=== PATIENT | male | born 1945 | race Caucasian/White ===

== ENCOUNTER → 2018-06-09 12:45 | Outpatient (CLI) | payer MEDICARE, OTHER, SELFPAY ==
--- NOTE | 2018-06-09 | DI.CT.S_ITS ---
PROCEDURE: CT ABDOMEN PELVIS W CON INDICATIONS: HEMATURIA TECHNIQUE: After the administration of intravenous contrast, 5 mm thick sections acquired from the diaphragm to the symphysis. 5 mm coronal and sagittal reformats were acquired. For radiation dose reduction, the following was used: automated exposure control, adjustment of mA and/or kV according to patient size. COMPARISON: None. FINDINGS: Image quality: Excellent. ABDOMEN: Lung bases: No acute consolidation. Mild subsegmental atelectasis or scarring in the lung bases. There is a 3 mm nodule in the lingula on image 7 which is indeterminate in the absence of prior studies Heart size is normal. Solid organs: There is hepatic steatosis. Hypodense lesion in the posterior segment measuring approximately 1.9 cm with ill-defined peripheral nodular enhancement could be a hemangioma although technically indeterminate and further evaluation with ultrasound or dedicated liver protocol CT could be performed for further assessment. Additional smaller hypodense lesions seen in the right lobe, for example image 24 series 2 are technically indeterminate and too small to characterize definitively. Gallbladder negative. Biliary system is non dilated. Pancreas enhances normally. Spleen is normal in size and enhancement. Bilateral subcentimeter adrenal nodules, which are too small to characterize and nonspecific. These measure 74 Hounsfield units on the right and 59 Hounsfield units on the left. No hydronephrosis. Presumed lateral right renal cortical scarring with associated calcification. No nephrolithiasis is seen. Peritoneum and bowel: Bowel loops demonstrate normal wall thickness and caliber. No free fluid or air. Nodes and vessels: No retroperitoneal or mesenteric adenopathy by size criteria. Aorta and inferior vena cava are normal in size. Miscellaneous: No ventral hernias. PELVIS: Genitourinary: The bladder is partially decompressed otherwise unremarkable. Prostate appears enlarged Miscellaneous: No inguinal hernias or adenopathy. Bones: No suspicious bony lesions. No vertebral body compression fractures. IMPRESSION: No visualized etiology for hematuria. No hydronephrosis or urolithiasis identified. Hypodense liver lesion in the right lobe, possibly a hemangioma although recommend further evaluation with dedicated liver ultrasound or liver protocol contrast-enhanced CT or MRI Enlarged prostate. Please correlate clinically and with biochemical data such as PSA. Bilateral subcentimeter adrenal nodules which are technically indeterminate, although attenuation greater than expected for adenoma. Recommend further evaluation with dedicated adrenal protocol MRI or continued surveillance with CT to document long-term stability to exclude early metastatic disease. . Right renal cortical scarring with associated dystrophic calcifications. 3 mm lingular pulmonary nodule, indeterminate in the absence of prior studies. As clinically warranted, a followup noncontrast chest CT could be performed in one year to exclude early metastatic/malignant possibilities. Dictated by: Ravinder Ponce M.D. on 06/09/2018 at 13:30 Approved by: Ravinder Ponce M.D. on 06/09/2018 at 13:42
== END ==
PROVIDERS: PCP Internal Medicine; Visit Provider Internal Medicine
DX: R31.9 Hematuria, unspecified (principal); N40.0 Benign prostatic hyperplasia without lower urinary tract symptoms; K76.9 Liver disease, unspecified; R91.1 Solitary pulmonary nodule; N28.89 Other specified disorders of kidney and ureter
CPT/HCPCS: 74177

== ENCOUNTER → 2018-07-03 07:18 | Outpatient (CLI) | payer MEDICARE, OTHER, SELFPAY ==
--- NOTE | 2018-07-03 | DI.MRI.S_ITS ---
PROCEDURE: MR ABDOMEN WO CON INDICATIONS: *ADRENAL PROTOCOL* TECHNIQUE: Coronal HASTE, axial 2-D FLASH in- and [id number] with subtractions from the hepatic dome to the iliac crests. COMPARISON: [facility], CT, CT ABDOMEN PELVIS W CON, 06/09/2018, 13:07. FINDINGS: Image quality: Excellent. Adrenal glands: There is a 1.3 cm left adrenal nodule demonstrating signal drop off on out of phase images, consistent with presence of macroscopic fat, therefore, compatible with a benign adrenal adenoma. The smaller left renal nodule also demonstrates signal drop off on [id number] images, consistent with a adrenal adenoma. Other solid organs: There is a 1.1 x 2.2 cm mass in the posterior segment of the right hepatic lobe with T2 hyperintensity and T1 hypointensity. Several small hepatic cysts are noted. Liver is normal in overall size. Gallbladder is normal. Biliary system is non dilated. Pancreas is normal in morphology. Spleen is normal in size. Both kidneys are normal in size, without hydronephrosis. Nodes and vessels: No retroperitoneal or mesenteric adenopathy by size criteria. Aorta and inferior vena cava are normal in size. Bowel and peritoneum: Unenhanced bowel loops are normal in caliber. No free fluid. Lung bases: No basal pleural effusions. Heart size is normal. Bones and soft tissues: No ventral hernias. Bone marrow is of normal overall signal. IMPRESSION: 1. The small adrenal nodules bilaterally demonstrate MRI signal characteristics compatible with benign adrenal adenomas. 2. A 1.1 x 2.2 cm mass in the posterior segment of right hepatic lobe. This mass has shown nodular enhancement on CT and appears hyperechoic on ultrasound, compatible with a hemangioma. 3. Multiple small hepatic cysts are noted. Dictated by: Juan Carlos Menon M.D. on 07/03/2018 at 10:27 Approved by: Juan Carlos Menon M.D. on 07/03/2018 at 10:37
--- NOTE | 2018-07-03 | DI.US.S_ITS ---
PROCEDURE: US ABDOMEN COMPLETE INDICATIONS: LIVER DAMAGE TECHNIQUE: Real-time scanning was performed of the abdominal and retroperitoneal organs, with image documentation. COMPARISON: [facility], CT, CT ABDOMEN PELVIS W CON, 06/09/2018, 13:07. [facility], MR, MR ABDOMEN WO CON, 07/03/2018, 7:59. FINDINGS: Liver: Liver is normal in size. There is a hyperechoic mass in the posterior segment of the right hepatic lobe measuring 2.5 x 2.2 x 1.5 cm, which correlates with the mass seen on CT. A small slightly complex cyst is noted in the right hepatic lobe measuring 1.2 x 0.9 x 2.9 cm. Gallbladder: No gallstones. No gallbladder wall thickening, pericholecystic fluid or sonographic Cox's sign. Biliary ducts: Intrahepatic bile ducts are non-dilated. Extrahepatic bile duct caliber measures 5 mm. Normal is 6-7 mm or less in diameter, or 10 mm or less post-cholecystectomy. Pancreas: Visualized portions of the pancreas are sonographically normal. Spleen: Spleen is normal in size and homogeneous in echotexture. Kidneys: Kidneys are normal in size and echotexture. Right kidney measures 10.5 cm long; left kidney measures 10.1 cm long. There is a 1.3 cm echogenic structure in the superior pole the right kidney, consistent with a non-obstructive stone or calcification. No hydronephrosis. No solid masses. Aorta: Visualized aorta is normal in caliber at less than 3 cm. Iliacs: Proximal common iliac arteries are normal in caliber at less than 2.5 cm. IVC: Intrahepatic inferior vena cava is patent. Miscellaneous: No free abdominal fluid. IMPRESSION: 1. A 2.5 x 2.5 x 1.5 cm hyperechoic mass in the posterior segment of the right hepatic lobe, most likely a hepatic hemangioma. If the patient has no prior history of liver disease, no additional followup is recommended. 2. A small slightly complex cyst in the right hepatic lobe. 3. A 1.3 cm non--obstructive stone or calcification in the superior pole of the right kidney. Dictated by: Juan Carlos Menon M.D. on 07/03/2018 at 10:18 Approved by: Juan Carlos Menon M.D. on 07/03/2018 at 10:26
== END ==
PROVIDERS: PCP Internal Medicine; Visit Provider Internal Medicine
DX: K76.89 Other specified diseases of liver (principal); R16.0 Hepatomegaly, not elsewhere classified; N20.0 Calculus of kidney; K76.9 Liver disease, unspecified; E27.9 Disorder of adrenal gland, unspecified
CPT/HCPCS: 74181; 76700

== ENCOUNTER → 2019-01-12 08:39 | Outpatient (CLI) | payer MEDICARE, OTHER, SELFPAY ==
--- NOTE | 2019-01-12 | DI.CT.S_ITS ---
PROCEDURE: CT CHEST WO CON INDICATIONS: PULMONARY NODULE TECHNIQUE: Noncontrast 5 mm thick sections acquired from the pulmonary apices to the posterior costophrenic angles. 7 mm thick coronal and sagittal MIP reformats were then acquired. For radiation dose reduction, the following was used: automated exposure control, adjustment of mA and/or kV according to patient size. COMPARISON: [facility], US, US ABDOMEN COMPLETE, 07/03/2018, 8:38. [facility], MR, MR ABDOMEN WO CON, 07/03/2018, 7:59. [facility], CT, CT ABDOMEN PELVIS W CON, 06/09/2018, 13:07. FINDINGS: Image quality: Excellent. Lungs and pleura: There is a 4 mm nodule in lingula, stable in size since the last exam (series 3 image 51). No acute air space opacities. No pleural effusions or pneumothorax. Central and peripheral airways are patent and normal in caliber. Mediastinum: Heart size is normal. No pericardial effusion. No mediastinal adenopathy by size criteria. Thoracic aorta and central pulmonary arteries are normal in size. Esophagus is normal in caliber. No hiatal hernia. Bones and chest wall: No suspicious bony lesions. No vertebral body compression fractures. No axillary or supraclavicular adenopathy by size criteria. Thyroid gland is normal. Abdomen: There is a vague right hepatic hypodensity, which was seen on the last CT as a hepatic hemangioma with nodular enhancement. A small cyst is noted in the right hepatic lobe. There is a 1.0 x 2.0 cm right adrenal nodules CT density compatible with adenoma. IMPRESSION: 1. Stable 4 mm lingular nodule since 06/09/2018. Please see enclosed followup recommendation. Fleischner Society criteria for SOLID lung nodule followup. Nodule size (mm)Low-risk patientHigh-risk patient?4No follow-up neededFollow-up at 12 mo; if no change, no further follow-up>[id number]-ok CT at 12 mo; if no change, no further follow-up needed.Initial follow-up CT at 6-12 mo, then 18-24 mo if no change. >6-8Initial follow-up CT at 6-12 mo, then 18-24 mo if no change. Initial follow-up CT at 3-6 mo, then 9-12 mo and 24 mo if no change. >8Follow-up CT at 3, 9, 24 mo. Or PET and/or biopsy.Same as for low-risk pts. Dictated by: Juan Carlos Menon M.D. on 01/12/2019 at 10:11 Approved by: Juan Carlos Menon M.D. on 01/12/2019 at 10:22
== END ==
PROVIDERS: PCP Internal Medicine; Visit Provider Internal Medicine
DX: R91.1 Solitary pulmonary nodule (principal)
CPT/HCPCS: 71250

== ENCOUNTER → 2020-06-13 08:28 | Outpatient (CLI) | payer MEDICARE, OTHER, SELFPAY ==
[2020-06-13 10:31] LABS: Prostate Specific Antigen 2.61 ng/mL (0.10-4.00)
== END ==
PROVIDERS: PCP Internal Medicine; Referring Provider Student in an Organized Health Care Education/Training Program; Visit Provider Student in an Organized Health Care Education/Training Program
DX: C61 Malignant neoplasm of prostate (principal)
CPT/HCPCS: 36415; 84153

== ENCOUNTER → 2020-08-03 19:11 | Outpatient (ROUT) | payer MEDICARE, OTHER, SELFPAY ==
[2020-08-03 19:52] LABS: Hematocrit 42.8 % (41-53); Hemoglobin 14.6 g/dL (13.5-17.5); Mean Corpuscular Hemoglobin 30.6 PG (26-34); Mean Corpuscular Volume 90.2 fL (80-100); Platelet Count 221 X10^3/uL (150-400); Red Blood Cell Count 4.75 X10^6/uL (4.5-5.9); Red Cell Distribution Width 13.3 % (11.6-14.8); White Blood Cell Count 8.2 X10^3/uL (4.5-11.0)
[2020-08-03 20:02] LABS: BUN Creatinine Ratio 23.2 (6-22); Blood Urea Nitrogen 22 mg/dL (9-20); Calcium 9.1 mg/dL (8.4-10.2); Carbon Dioxide 27 mmol/L (22-32); Chloride 107 mmol/L (98-107); Estimated Glomerular Filt Rate > 60.0 mL/min (>60); Glucose 142 mg/dL (80-110); HEMOLYSIS < 15 (0-50); Potassium 4.2 mmol/L (3.4-5.1); Sodium 139 mmol/L (137-145)
[2020-08-03 20:29] LABS: Neutrophils Absolute Manual 5986 /uL (3000-5900); RBC Morphology Normal Morphology; Total Cells Counted 100
== END ==
PROVIDERS: PCP Internal Medicine; Visit Provider Internal Medicine
DX: Z01.818 Encounter for other preprocedural examination (principal)
CPT/HCPCS: 80048; 85025

== ENCOUNTER → 2020-09-05 09:04 | Outpatient (CLI) | payer MEDICARE, OTHER, SELFPAY | PROVIDERS: PCP Internal Medicine; Referring Provider Student in an Organized Health Care Education/Training Program; Visit Provider Student in an Organized Health Care Education/Training Program | DX: C61 Malignant neoplasm of prostate (principal) | CPT/HCPCS: 36415; 84153 ==

== ENCOUNTER → 2020-11-21 10:15 | Outpatient (CLI) | payer MEDICARE, OTHER, SELFPAY ==
[2020-11-21 11:28] LABS: Prostate Specific Antigen 2.91 ng/mL (0.10-4.00)
== END ==
PROVIDERS: PCP Internal Medicine; Referring Provider Student in an Organized Health Care Education/Training Program; Visit Provider Student in an Organized Health Care Education/Training Program
DX: C61 Malignant neoplasm of prostate (principal)
CPT/HCPCS: 36415; 84153

== ENCOUNTER → 2021-02-01 15:10 | Outpatient (ROUT) | payer MEDICARE, BC, SELFPAY ==
[2021-02-01 15:47] LABS: Aspartate Aminotransferase 22 IU/L (17-59); Blood Urea Nitrogen 21 mg/dL (9-20); Calcium 9.6 mg/dL (8.4-10.2); Carbon Dioxide 26 mmol/L (22-32); Chloride 106 mmol/L (98-107); Cholesterol 185 mg/dL (140-199); Estimated Glomerular Filt Rate > 60.0 mL/min (>60); Glucose 105 mg/dL (80-110); HDL Cholesterol 65 mg/dL (40-60); HEMOLYSIS < 15 (0-50); LDL Cholesterol Calculated 105 mg/dL (<100); Potassium 4.6 mmol/L (3.4-5.1); Sodium 137 mmol/L (137-145); Triglycerides 75 mg/dL (35-150)
== END ==
PROVIDERS: PCP Internal Medicine; Visit Provider Internal Medicine
DX: I10 Essential (primary) hypertension (principal); E78.2 Mixed hyperlipidemia
CPT/HCPCS: 80048; 80061; 84450

== ENCOUNTER → 2021-02-13 10:26 | Outpatient (CLI) | payer MEDICARE, BC, SELFPAY | PROVIDERS: PCP Internal Medicine; Referring Provider Student in an Organized Health Care Education/Training Program; Visit Provider Student in an Organized Health Care Education/Training Program | DX: C61 Malignant neoplasm of prostate (principal) | CPT/HCPCS: 36415; 84153 ==

== ENCOUNTER → 2021-05-15 09:23 | Outpatient (CLI) | payer MEDICARE, BC, SELFPAY ==
[2021-05-15 10:57] LABS: Prostate Specific Antigen 2.88 ng/mL (0.10-4.00)
== END ==
PROVIDERS: PCP Internal Medicine; Referring Provider Student in an Organized Health Care Education/Training Program; Visit Provider Student in an Organized Health Care Education/Training Program
DX: C61 Malignant neoplasm of prostate (principal)
CPT/HCPCS: 36415; 84153

== ENCOUNTER → 2021-11-29 11:06 | Outpatient (CLI) | payer MEDICARE, BC, SELFPAY ==
[2021-11-29 13:25] LABS: Prostate Specific Antigen 3.73 ng/mL (0.10-4.00)
== END ==
PROVIDERS: PCP Internal Medicine; Referring Provider Student in an Organized Health Care Education/Training Program; Visit Provider Student in an Organized Health Care Education/Training Program
DX: C61 Malignant neoplasm of prostate (principal)
CPT/HCPCS: 36415; 84153

== ENCOUNTER → 2022-03-07 10:08 | Outpatient (CLI) | payer MEDICARE, BC, SELFPAY ==
[2022-03-07 11:52] LABS: Add Manual Diff / Slide Review NO; Basophils Absolute Auto 0 /uL (0-100); Basophils Percent Auto 0.8 % (0-2); Eosinophils Absolute Auto 200 /uL (0-450); Eosinophils Percent Auto 3.3 % (2-4); Hematocrit 45.1 % (41-53); Hemoglobin 15.5 g/dL (13.5-17.5); Lymphocytes Absolute Auto 1300 /uL (1100-4500); Lymphocytes Percent Auto 23.9 % (25-40); Mean Corpuscular HGB Conc 34.3 % (30-36); Mean Corpuscular Hemoglobin 30.5 PG (26-34); Mean Corpuscular Volume 88.9 fL (80-100); Monocytes Absolute Auto 600 /uL (0-900); Monocytes Percent Auto 10.8 % (3-14); Neutrophils Absolute Auto 3300 /uL (1500-7000); Neutrophils Percent Auto 61.2 % (50-75); Platelet Count 225 X10^3/uL (150-400); Red Blood Cell Count 5.08 X10^6/uL (4.5-5.9); Red Cell Distribution Width 13.2 % (11.6-14.8); White Blood Cell Count 5.4 X10^3/uL (4.5-11.0)
[2022-03-07 12:17] LABS: Alanine Aminotransferase 14 IU/L (<50); Albumin 4.5 g/dL (3.5-5.0); Albumin Globulin Ratio 1.8 (1.0-2.8); Alkaline Phosphatase 87 U/L (38-126); Aspartate Aminotransferase 26 IU/L (17-59); BUN Creatinine Ratio 21.8 (6-22); Bilirubin Total 0.7 mg/dL (0.2-1.3); Blood Urea Nitrogen 19 mg/dL (9-20); Calcium 9.4 mg/dL (8.4-10.2); Carbon Dioxide 25 mmol/L (22-32); Chloride 104 mmol/L (98-107); Cholesterol 182 mg/dL (140-199); Estimated Glomerular Filt Rate > 60 mL/min (>60); Globulin 2.5 g/dL (1.7-4.1); Glucose 75 mg/dL (80-110); HDL Cholesterol 71 mg/dL (40-60); HEMOLYSIS < 15 (0-50); LDL Cholesterol Calculated 93 mg/dL (<100); Potassium 4.9 mmol/L (3.4-5.1); Sodium 140 mmol/L (137-145); Triglycerides 89 mg/dL (35-150)
[2022-03-07 12:45] LABS: Prostate Specific Antigen Scrn 4.09 ng/mL (0.1-4.0)
[2022-03-07 12:46] LABS: TSH w/ Reflex to FT4 2.84 uIU/mL (0.47-4.68)
== END ==
PROVIDERS: PCP Internal Medicine; Referring Provider Student in an Organized Health Care Education/Training Program; Visit Provider Internal Medicine
DX: E78.2 Mixed hyperlipidemia (principal); Z12.5 Encounter for screening for malignant neoplasm of prostate; I10 Essential (primary) hypertension; C61 Malignant neoplasm of prostate
CPT/HCPCS: 36415; 80053; 80061; 84443; 85025; G0103

== ENCOUNTER → 2022-05-07 09:15 | Outpatient (CLI) | payer MEDICARE, BC, SELFPAY ==
[2022-05-07 11:23] LABS: Prostate Specific Antigen 3.15 ng/mL (0.10-4.00)
== END ==
PROVIDERS: PCP Internal Medicine; Referring Provider Student in an Organized Health Care Education/Training Program; Visit Provider Student in an Organized Health Care Education/Training Program
DX: C61 Malignant neoplasm of prostate (principal)
CPT/HCPCS: 36415; 84153

== ENCOUNTER 2022-07-31 06:16 | Day surgery (SDC) | payer MEDICARE, BC, SELFPAY ==
[2022-07-31 07:22] VITALS: BP 141/73; PULSE 74; RESP 16; TEMP 36.6; O2SAT 98; BMI 20.7
[2022-07-31] MEDS: LACTATED RINGERS 1,000 ML 200 ML IV (07:25)
[2022-07-31] MEDS: LACTATED RINGERS 1,000 ML 150 ML IV (07:35)
[2022-07-31 07:38] LABS: COVID19 -Nasal RAPID Negative (Negative)
--- NOTE | 2022-07-31 07:45 | PM.HP.1 ---
History of Present Illness History of Present Illness Date Patient Seen: 07/31/22 Time Patient Seen: 07:45 Chief complaint: SDC Narrative: The patient presents for colorectal screening. Previously normal colonoscopy 5 years ago. Brother has history of colon cancer. On further history denies any recent gastrointestinal symptoms. No nausea, vomiting, abdominal pain, loss of appetite, unexplained weight loss, change in bowel habits, diarrhea, constipation, melena, hematochezia, or bright red blood per rectum. Patient History Medical History Acne BPH w urinary obs/LUTS Cataracts, bilateral Chicken pox Encounter for general adult medical examination without abnormal findings Erectile dysfunction Essential hypertension Family history of colon cancer Iliotibial band syndrome, left leg Irritable bowel syndrome Malignant neoplasm of prostate Melanoma Mixed hyperlipidemia Mumps Skin cancer Surgical History Anesthesia History of cataract removal with insertion of prosthetic lens History of ear surgery History of hand surgery Family & Social History Family History Brother Cancer Social History: household members spouse Tobacco & Substance use: Smoking Status Never smoker alcohol intake never Substance Use Type does not use Meds Home Medications and Allergies Home Medications Medication Instructions Recorded Confirmed Type amlodipine 2.5 mg tablet 2.5 mg PO DAILY #90 tabs 03/07/22 07/31/22 Rx aspirin 81 mg tablet,delayed 81 mg PO DAILY 03/07/22 07/31/22 History release atorvastatin 20 mg tablet 20 mg PO DAILY #90 tabs 03/07/22 07/31/22 Rx cholecalciferol (vitamin D3) 25 25 mcg PO DAILY 03/07/22 07/31/22 History mcg (1,000 unit) capsule coenzyme [id number] E 100 mg-100 2 cap PO DAILY 03/07/22 07/31/22 History unit capsule fluocinolone 0.01 % topical cream 1 applic topical BID 03/07/22 07/31/22 History tadalafil 20 mg tablet 20 mg PO DAILY 03/07/22 07/31/22 History tamsulosin 0.4 mg capsule 0.4 mg PO DAILY 05/26/22 07/31/22 History Allergies Allergy/AdvReac Type Severity Reaction Status Date / Time shellfish derived Allergy Severe Swelling Verified 07/31/22 07:15 of Lip/Tongue/Throat procaine [From Novocain] AdvReac Severe Vomiting Verified 07/31/22 07:15 Exam Vital Signs (past 8 hours): - 07/31/22 07:22 Temperature 97.9 F Pulse Rate 74 Respiratory Rate 16 Blood Pressure 141/73 H Pulse Oximetry 98 Oxygen Delivery Method Room Air Oxygen Delivery Method Room Air Narrative Exam Narrative: General adult male alert oriented no acute distress Abdomen soft nontender nondistended Objective Labs Labs: Laboratory Results - last 24 hr 07/31/22 07:06 SARS-CoV-2 (PCR) Negative Assessment & Plan Assessment & Plan narrative: The patient requires colorectal screening and colonoscopy is recommended. Technical details were discussed. Risks, benefits, alternatives explained. Risks including but not limited to myocardial infarction, aspiration, bleeding, pain, missed lesion, incomplete examination, need for further radiographic studies, colonic perforation, and need for major abdominal surgery were discussed. All questions were answered to their satisfaction, and they are in agreement with this plan. Time Spent With Patient Critical Care time: I spent a total of [] minutes of critical care time on this patient's care today; this time is exclusive of procedural time.
--- NOTE | 2022-07-31 07:49 | PM.OP.COLON ---
Operative Date/Time/Diagnoses Date of procedure: 07/31/22 Time of procedure: 07:49 Pre-op diagnosis: Family history of colon cancer Post-op diagnosis: same Procedure & Clinicians Study performed: Colonoscopy Same procedure as scheduled: Yes Indications: Family history of colon cancer Surgeon: Leroy Reveles Procedure Notes Procedure in detail: Medications: Conscious sedation using 4mg IV midazolam and 150mcg IV of fentanyl The history and physical was performed/updated and the patient is ASA class is 2. The procedure was discussed in detail with the patient. Potential risks complications including infection, bleeding, missed diagnosis, perforation, need for surgery, and were explained. Their questions were answered and informed consent was obtained. Patient was brought to the procedure room and placed standard monitoring equipment. The patient's vital signs were monitored continuously throughout the entire procedure. Prior to starting time-out was performed. The patient was placed in the left lateral recumbent position. Procedural sedation was administered. Examination began with a thorough inspection of the perianal area there was no evidence of fissures, fistulae, external hemorrhoids or cutaneous malignancy. The colonoscopy scope was then placed into the anal canal and was advanced to the cecum, which was identified by the ileocecal valve, the appendiceal orifice and the confluence of the taenia. The scope was then slowly withdrawn examining colon thoroughly in all directions, irrigating it of any residual stool. FINDINGS 1. No masses or polyps 2. Tortuous colon The patient tolerated the procedure well. They will be discharged once criteria are met. The prep was of good/excellent quality. The withdrawl time was 5 minutes. The sedation time was 24 minutes. Impression: Normal colonoscopy Post-procedure Recommendations: Colonoscopy in 5 years Disposition: same day surgery
[2022-07-31] MEDS: MIDAZOLAM 5 MG/5 ML VIAL IV (08:08)
[2022-07-31] MEDS: fentaNYL 100 MCG/2 ML INJ IV (08:09)
--- NOTE | 2022-07-31 08:17 | SUR.OPER ---
TOLERATED WELL... EXTERNAL ABDOMINAL PRESSURE REQUIRED
[2022-07-31 08:25] VITALS: BP 114/65; PULSE 70; RESP 16; TEMP 36.4; O2SAT 98
[2022-07-31 08:30] VITALS: BP 119/71; PULSE 67; RESP 16; O2SAT 98
[2022-07-31 08:35] VITALS: BP 121/68; PULSE 60; RESP 16; TEMP 36.8; O2SAT 98
[2022-07-31 08:40] VITALS: BP 127/63; PULSE 62; RESP 18; TEMP 37; O2SAT 98
== END 2022-07-31 08:49 | disposition home or self-care (01) ==
PROVIDERS: PCP Internal Medicine; Referring Provider Surgery; Visit Provider Surgery
PROC: 0DJD8ZZ Inspection of Lower Intestinal Tract, Via Natural or Artificial Opening Endoscopic (ICD-10-PCS; CPT 45378; principal; 2022-07-31 07:45)
DX: Z12.11 Encounter for screening for malignant neoplasm of colon (principal); Z80.0 Family history of malignant neoplasm of digestive organs; Z20.822 Contact with and (suspected) exposure to COVID-19
CPT/HCPCS: G0105; 87635; 99152; 99153; C9803; J2250; J3010

== ENCOUNTER → 2022-08-13 16:26 | Outpatient (CLI) | payer MEDICARE, BC, SELFPAY ==
--- NOTE | 2022-08-13 16:27 | DI.RAD.S_ITS ---
PROCEDURE: XR HIP W PEL IF DONE LT 2V INDICATIONS: left hip pain TECHNIQUE: AP pelvis with lateral view(s) of the left hip(s). COMPARISON: None. FINDINGS: Bones: No fractures or dislocations. Pelvic ring appears intact. No suspicious bony lesions. Moderate symmetric axial joint space narrowing with periarticular osteophyte formation. There is prominence of the femoral head/neck junction bilaterally. Degenerative disc and facet disease involves the inferior lumbar spine. Soft tissues: The visualized bowel gas pattern is normal. No suspicious soft tissue calcifications. IMPRESSION: 1. Moderate symmetric hip joint degeneration. 2. Osseous prominence of the femoral head/neck junction bilaterally which can be associated CAM type femoral acetabular impingement. Dictated by: Herminio Mann [facility] Interpreted: Asha Madsen MD on 08/13/2022 at 16:44 Transcribed by: MEDINA on 08/13/2022 at 16:45 Approved by: Asha Madsen M.D. on 08/13/2022 at 16:52
== END ==
PROVIDERS: PCP Internal Medicine; Referring Provider Internal Medicine; Visit Provider Internal Medicine
DX: M25.552 Pain in left hip (principal); M76.32 Iliotibial band syndrome, left leg
CPT/HCPCS: 73502

== ENCOUNTER → 2022-11-06 13:15 | Outpatient (CLI) | payer MEDICARE, BC, SELFPAY ==
[2022-11-06 15:04] LABS: Prostate Specific Antigen 4.05 ng/mL (0.10-4.00)
== END ==
PROVIDERS: PCP Internal Medicine; Referring Provider Student in an Organized Health Care Education/Training Program; Visit Provider Student in an Organized Health Care Education/Training Program
DX: C61 Malignant neoplasm of prostate (principal)
CPT/HCPCS: 36415; 84153

== ENCOUNTER → 2023-03-13 10:39 | Outpatient (CLI) | payer MEDICARE, BC, SELFPAY ==
[2023-03-13 12:36] LABS: Aspartate Aminotransferase 24 IU/L (17-59); BUN Creatinine Ratio 19.4 (6-22); Blood Urea Nitrogen 18 mg/dL (9-20); Calcium 9.1 mg/dL (8.4-10.2); Carbon Dioxide 26 mmol/L (22-32); Chloride 104 mmol/L (98-107); Cholesterol 167 mg/dL (140-199); Estimated Glomerular Filt Rate > 60 mL/min (>60); Glucose 91 mg/dL (80-110); HDL Cholesterol 68 mg/dL (40-60); HEMOLYSIS < 15 (0-50); LDL Cholesterol Calculated 85 mg/dL (<100); Potassium 4.4 mmol/L (3.4-5.1); Sodium 137 mmol/L (137-145); Triglycerides 69 mg/dL (35-150)
[2023-03-13 12:56] LABS: Prostate Specific Antigen 3.36 ng/mL (0.10-4.00)
== END ==
PROVIDERS: PCP Internal Medicine; Referring Provider Internal Medicine; Visit Provider Internal Medicine
DX: E78.2 Mixed hyperlipidemia (principal); C61 Malignant neoplasm of prostate; I10 Essential (primary) hypertension; N13.8 Other obstructive and reflux uropathy; N40.1 Benign prostatic hyperplasia with lower urinary tract symptoms
CPT/HCPCS: 36415; 80048; 80061; 84153; 84450

== ENCOUNTER → 2023-03-28 09:35 | Outpatient (CLI) | payer MEDICARE, BC, SELFPAY ==
--- NOTE | 2023-03-28 09:36 | DI.ECHO.S_ITS ---
+ + [place] : : [place] : : [facility] : : [facility] : : [place] : : [place] : : [id number] : : Phone: [phone] Echocardiogram Report + + :Name: TIMOTHY BEY Study Date: 03/28/2023 Height: 69 in : :[facility] ReadingLocation: Weight: 145 lb : : Gender: Male BSA: 1.8 m2 : :: 1945 Age: 77 yrs BP: 115/73 mmHg: :Reason For Study: MURMUR HR: 66 : :Ordering Physician: SARA, : :ECHO Performed By: ROVERTO DICKERSON : :Referring: ECHO RUIZ : + + Interpretation Summary 1) Normal left ventricular thickness, size, wall motion, and systolic function (EF 60-65%). 2) Normal right ventricular size and function. 3) Mildly calcifc aortic valve with no stenosis or regurgitation. 4) No prior Echo available for comparison. Procedure: A two-dimensional transthoracic echocardiogram with color flow and Doppler was performed. The study quality was technically adequate. There is no prior echocardiogram noted for this patient. The patient was in normal sinus rhythm during the exam. Left Ventricle: The left ventricle is normal in size and wall thickness. Left ventricular systolic function is normal. The ejection fraction is estimated to be 60-65%. Left ventricular wall motion is normal. Diastolic parameters suggest a relaxation abnormality of the left ventricle, consistent with probable normal filling pressures. Right Ventricle: The right ventricle is normal in size and function. Atria: The left atrium is mildly dilated. The right atrium is mildly dilated. There is no Doppler evidence for an interatrial shunt. Mitral Valve: The mitral valve is normal in structure and function. There is trace mitral regurgitation. Aortic Valve: The aortic valve is trileaflet. The aortic valve opens well. There is discrete nodular thickening of the non- coronary cusp. There is mild aortic valve sclerosis. There is no aortic valve stenosis. There is trace aortic regurgitation. Tricuspid Valve: The tricuspid valve is normal in structure and function. There is mild tricuspid regurgitation. The right ventricular systolic pressure is estimated to be at least 25 mmHg based on an estimated right atrial pressure of 3 mm Hg. Pulmonic Valve: The pulmonic valve is normal in structure and function. There is no pulmonic valvular regurgitation. Great Vessels: The aortic root is normal size. The ascending aorta is normal in size. The IVC is of normal diameter and collapses greater than 50% with a sniff. This suggests a low right atrial pressure of 3 mm Hg. Pericardium/ Pleura There is no pericardial effusion. There is no pleural effusion. MMode/2D Measurements & Calculations LVIDd: 4.2 cm LVOT diam: 2.0 cm LVIDs: 2.6 cm Ao root diam: 3.3 cm FS: 38.1 % asc Aorta Diam: 3.2 cm IVSd: 0.90 cm LVPWd: 0.70 cm LV pruitt. diameter/BSA (cm/m^2): 2.3 LV sys. diameter/BSA (cm/m^2): 1.4 LA A2 area: 20.0 cm2 RA long axis: 4.7 cm LA A4 area: 18.9 cm2 LA length (vol): 5.7 cm LA vol: 56.0 ml LA vol index: 31.1 ml/m2 LVLs ap4: 6.5 cm LVLd ap2: 7.3 cm LVLs ap2: 5.8 cm TAPSE_phl: 2.6 cm Doppler Measurements & Calculations Ao V2 max: 195.0 cm/sec LVOT Max Perfecto: 135.0 cm/sec Ao V2 mean: 141.0 cm/sec LV V1 max P.3 mmHg Ao max P.2 mmHg LV V1 VTI: 31.5 cm Ao mean P.0 mmHg JAMES(I,D): 2.2 cm2 Ao V2 VTI: 44.5 cm JAMES(V,D): 2.2 cm2 sev ratio: 0.71 JAMES indexed to BSA (cm^2/m^2): 1.2 MV E max perfecto: 90.4 cm/sec TR max perfecto: 233.0 cm/sec MV A max perfecto: 88.7 cm/sec TR max P.7 mmHg MV E/A: 1.0 PA V2 max: 108.0 cm/sec Med Peak E' Perfecto: 6.7 cm/sec PA V2 mean: 69.7 cm/sec E/E' med: 13.6 PA mean P.0 mmHg Lat Peak E' Perfecto: 10.5 cm/sec PA pr(Accel): 18.7 mmHg E/E' lat: 8.6 E/e' average: 11.1 MV dec time: 0.21 sec SV(LVOT): 99.0 ml AV VR_phl: 0.69 JAMES(VTI)/BSA_phl: 1.2 MV P1/2t-pr_phl: 61.0 msec Reading Physician:01:[id number] PM
== END ==
PROVIDERS: PCP Internal Medicine; Referring Provider Internal Medicine; Visit Provider Internal Medicine
DX: R01.1 Cardiac murmur, unspecified (principal); I08.2 Rheumatic disorders of both aortic and tricuspid valves
CPT/HCPCS: 93306

== ENCOUNTER → 2023-06-03 09:08 | Outpatient (CLI) | payer MEDICARE, BC, SELFPAY ==
[2023-06-03 11:48] LABS: Prostate Specific Antigen 3.27 ng/mL (0.10-4.00)
== END ==
PROVIDERS: PCP Internal Medicine; Referring Provider Student in an Organized Health Care Education/Training Program; Visit Provider Student in an Organized Health Care Education/Training Program
DX: C61 Malignant neoplasm of prostate (principal)
CPT/HCPCS: 36415; 84153

== ENCOUNTER 2023-07-30 09:23 | Emergency (ER) | payer MEDICARE, BC, SELFPAY ==
[2023-07-30] VITALS (13 sets, daily range): BP systolic 115–159; BP diastolic 57–82; PULSE 58–79; RESP 14–30; TEMP 36.6; O2SAT 95–97; BMI 20.7
--- NOTE | 2023-07-30 09:29 | DI.RAD.S_ITS ---
PROCEDURE: XR CHEST 1V INDICATIONS: chest pain TECHNIQUE: One view of the chest was acquired. COMPARISON: CT, CT CHEST WO CON, 01/12/2019, 8:39. FINDINGS: Surgical changes and devices: None. Lungs and pleura: Lungs are clear. No pleural effusions or pneumothorax. Mediastinum: Mediastinal contours appear normal. Heart size is normal. Bones and chest wall: No suspicious bony lesions. Overlying soft tissues appear unremarkable. IMPRESSION: Portable chest within normal limits for age. Dictated by: Juan Carlos Menon M.D. on 07/30/2023 at 9:49 Approved by: Juan Carlos Menon M.D. on 07/30/2023 at 9:49
[2023-07-30 09:47] LABS: Add Manual Diff / Slide Review NO; Basophils Absolute Auto 100 /uL (0-100); Basophils Percent Auto 0.9 % (0-2); Eosinophils Absolute Auto 200 /uL (0-450); Eosinophils Percent Auto 3.2 % (2-4); Hematocrit 46.3 % (41-53); Hemoglobin 15.7 g/dL (13.5-17.5); Lymphocytes Absolute Auto 1700 /uL (1100-4500); Lymphocytes Percent Auto 28.8 % (25-40); Mean Corpuscular HGB Conc 33.9 % (30-36); Mean Corpuscular Hemoglobin 30.8 PG (26-34); Mean Corpuscular Volume 90.9 fL (80-100); Monocytes Absolute Auto 400 /uL (0-900); Monocytes Percent Auto 6.1 % (3-14); Neutrophils Absolute Auto 3500 /uL (1500-7000); Platelet Count 211 X10^3/uL (150-400); Red Cell Distribution Width 13.3 % (11.6-14.8); White Blood Cell Count 5.8 X10^3/uL (4.5-11.0)
[2023-07-30 09:54] LABS: Prothrombin Time 11.6 SECONDS (10.1-12.7)
[2023-07-30 09:57] LABS: PTT Partial Thromboplastin Tim 33 SECONDS (26-36)
[2023-07-30 10:00] LABS: Alanine Aminotransferase 17 IU/L (<50); Albumin 4.5 g/dL (3.5-5.0); Albumin Globulin Ratio 1.6 (1.0-2.8); Alkaline Phosphatase 79 U/L (38-126); Aspartate Aminotransferase 24 IU/L (17-59); BUN Creatinine Ratio 19.6 (6-22); Bilirubin Total 0.8 mg/dL (0.2-1.3); Blood Urea Nitrogen 18 mg/dL (9-20); Calcium 9.1 mg/dL (8.4-10.2); Carbon Dioxide 29 mmol/L (22-32); Chloride 103 mmol/L (98-107); Creatine Kinase 67 U/L (55-170); Estimated Glomerular Filt Rate > 60 mL/min (>60); Globulin 2.9 g/dL (1.7-4.1); Glucose 119 mg/dL (80-110); HEMOLYSIS < 15 (0-50); Lipase 67 U/L (23-300); Magnesium 2.1 mg/dL (1.6-2.3); Sodium 140 mmol/L (137-145); Total Protein 7.4 g/dL (6.3-8.2)
[2023-07-30 10:10] LABS: Troponin I < 0.012 ng/mL (0.01-0.034)
[2023-07-30 10:56] LABS: Bacteria Urine None Seen; Culture Indicated Urine Cult Not Indicated; RBC Urine 0-1/HPF (0-5/HPF); Squamous Epithelial Cell Urine None Seen (0-5/HPF); WBC Urine 0-1/HPF (0-5/HPF)
[2023-07-30 12:37] LABS: NT-proBNP (BNP-Adult 18+) 37 pg/mL (<450); Troponin I < 0.012 ng/mL (0.01-0.034)
--- NOTE | 2023-07-30 12:54 | ED_ITS ---
HPI - Arrhythmia/Palpitations General Chief Complaint: Arrhythmia/Palpitations Stated Complaint: heart Time Seen by Provider: 07/30/23 11:59 Source: patient Mode of arrival: Ambulatory Limitations: no limitations History of Present Illness HPI narrative: This is an 78-year-old male with history of hypertension, dyslipidemia, BPH, erectile dysfunction on an aspirin daily. Patient presents with complaint of palpitations since the of the month, patient states it has been going on for several days, nothing seems to be making it worse or better. He does feel little lightheaded in the morning gets better as the day goes by. States he does not really feeling palpitations in the 2nd half of the day. He denies any syncope no chest pain, no shortness of breath, no nausea or vomiting, no diaphoresis. No swelling of extremities. No issues such as diarrhea or constipation, no urinary symptoms. He would similar episode in February, had EKGs and echo which did not show any acute changes per patient. States no issues since then. He does take medication for blood pressure, hypertension and dyslipidemia, he takes an aspirin 81 mg daily. No prior cardiac stents or interventions. He states had a finger surgery in the past and some excision for skin lesions. Allergic to Novocain. No tobacco, alcohol or illicit. Dr. Mcwilliams is his primary care. He is never seen Cardiology before. Related Data Home Medications Medication Instructions Recorded Confirmed aspirin 81 mg tablet,delayed 81 mg PO DAILY 03/07/22 04/11/23 release cholecalciferol (vitamin D3) 25 25 mcg PO DAILY 03/07/22 04/11/23 mcg (1,000 unit) capsule coenzyme [id number] 100 mg-100 2 cap PO DAILY 03/07/22 04/11/23 unit capsule tadalafil 20 mg tablet 20 mg PO DAILY 03/07/22 04/11/23 tamsulosin 0.4 mg capsule 0.4 mg PO DAILY 05/26/22 04/11/23 Previous Rx's Medication Instructions Recorded amlodipine 2.5 mg tablet 2.5 mg PO DAILY #90 tabs 03/11/23 atorvastatin 20 mg tablet 20 mg PO DAILY #90 tabs 03/11/23 Allergies Allergy/AdvReac Type Severity Reaction Status Date / Time shellfish derived Allergy Severe Swelling Verified 07/30/23 09:26 of Lip/Tongue/Throat procaine [From Novocain] AdvReac Severe Vomiting Verified 07/30/23 09:26 Review of Systems Review of Systems ROS Unobtainable: All systems reviewed & are unremarkable except as noted in HPI and below Patient History Medical History Acne BPH w urinary obs/LUTS Cataracts, bilateral Chicken pox Erectile dysfunction Essential hypertension Family history of colon cancer Femoral acetabular impingement Irritable bowel syndrome Malignant neoplasm of prostate Melanoma Mixed hyperlipidemia Mumps Skin cancer Surgical History Anesthesia History of cataract removal with insertion of prosthetic lens History of ear surgery History of hand surgery Family History Brother Cancer Social History household members: spouse Smoking Status: Never smoker alcohol intake: never Smoking Status: Never smoker alcohol intake frequency: holidays/special occasions only Substance Use Type: does not use Exam Narrative Exam Narrative: GENERAL: Alert and oriented x three, thin elderly male in no acute distress. HEENT: Head normocephalic, atraumatic, EOMI, pupils reactive, face symmetric, moist mucous membranes NECK: Supple, full range of motion CARDIOVASCULAR: Regular rate and rhythm without murmurs, rubs or gallops. No JVD. No swelling bilateral lower extremities. RESPIRATORY: Breath sounds equal bilaterally, no wheezes rales or rhonchi. No t achypnea or accessory muscle use. ABDOMEN: Soft, nontender. Normoactive bowel sounds all 4 quadrants. No guarding or rebound, rigidity, no mass : No CVA tenderness EXTREMITIES: Normal range of motion, no clubbing or edema. Neurovascularly intact NEUROLOGICAL: Cranial nerves II through XII grossly intact. Moving all extremities SKIN: Warm, dry, no petechiae, no rashes or lesions. Initial Vital Signs Initial Vital Signs: Vital Signs Temperature 97.8 F 07/30/23 09:26 Pulse Rate 79 07/30/23 09:26 Respiratory Rate 14 07/30/23 09:26 Blood Pressure 140/63 07/30/23 09:26 Pulse Oximetry 96 07/30/23 09:26 Oxygen Delivery Method Room Air 07/30/23 09:26 Course Orders Ordered: ED Orders 07/30/23 10:18 Urine Microscopic Stat 07/30/23 12:00 BNP [NT-proBNP (BNP-Adult 18+)] Stat Troponin I Stat Vital Signs Vital signs: Vital Signs - 8 hr 07/30/23 11:00 07/30/23 11:00 07/30/23 11:21 Pulse Rate 62 Respiratory Rate 21 Blood Pressure 135/63 148/67 H Pulse Oximetry 95 07/30/23 11:21 07/30/23 11:30 07/30/23 11:30 Pulse Rate 61 60 Respiratory Rate 20 14 Blood Pressure 134/58 L Pulse Oximetry 97 96 07/30/23 12:00 07/30/23 12:01 07/30/23 12:01 Pulse Rate 64 61 Respiratory Rate 18 16 Blood Pressure 159/82 H Pulse Oximetry 95 97 07/30/23 12:30 07/30/23 12:30 07/30/23 13:00 Pulse Rate 58 L Respiratory Rate Blood Pressure 137/61 150/71 H Pulse Oximetry 95 07/30/23 13:00 07/30/23 13:17 07/30/23 13:17 Pulse Rate 59 L 64 Respiratory Rate 20 18 Blood Pressure 151/71 H Pulse Oximetry 96 95 07/30/23 13:30 07/30/23 13:30 Pulse Rate 65 Respiratory Rate Blood Pressure 144/66 H Pulse Oximetry 96 MDM - Arrhythmia/Palpitations Lab Data 07/30/23 09:38 07/30/23 09:38 Labs: Lab Results 07/30/23 07/30/23 07/30/23 Range/Units 09:38 09:38 09:38 WBC 5.8 (4.5-11.0) X10^3/uL RBC 5.10 (4.5-5.9) X10^6/uL Hgb 15.7 (13.5-17.5) g/dL Hct 46.3 (41-53) % MCV 90.9 (80-100) fL MCH 30.8 (26-34) PG MCHC 33.9 (30-36) % RDW 13.3 (11.6-14.8) % Plt Count 211 (150-400) X10^3/uL Neut % (Auto) 61.0 (50-75) % Lymph % (Auto) 28.8 (25-40) % [place] % (Auto) 6.1 (3-14) % Eos % (Auto) 3.2 (2-4) % Baso % (Auto) 0.9 (0-2) % Neut # (Auto) 3500 (9512-0550) /uL Lymph # (Auto) 1700 (0303-9361) /uL [place] # (Auto) 400 (0-900) /uL Eos # (Auto) 200 (0-450) /uL Baso # (Auto) 100 (0-100) /uL PT 11.6 (10.1-12.7) SECONDS INR 1.0 (0.9-1.3) APTT 33 (26-36) SECONDS Sodium 140 (137-145) mmol/L Potassium 4.0 (3.4-5.1) mmol/L Chloride 103 (98-107) mmol/L Carbon Dioxide 29 (22-32) mmol/L BUN 18 (9-20) mg/dL Creatinine 0.92 (0.66-1.25) mg/dL Estimated GFR > 60 (>60) mL/min BUN/Creatinine Ratio 19.6 (6-22) Glucose 119 H (80-110) mg/dL Calcium 9.1 (8.4-10.2) mg/dL Magnesium 2.1 (1.6-2.3) mg/dL Total Bilirubin 0.8 (0.2-1.3) mg/dL AST 24 (17-59) IU/L ALT 17 (<50) IU/L Alkaline Phosphatase 79 (38-126) U/L Total Creatine Kinase 67 (55-170) U/L Troponin I < 0.012 (0.01-0.034) ng/mL NT-Pro-B Natriuret Pep (<450) pg/mL Total Protein 7.4 (6.3-8.2) g/dL Albumin 4.5 (3.5-5.0) g/dL Globulin 2.9 (1.7-4.1) g/dL Albumin/Globulin Ratio 1.6 (1.0-2.8) Lipase 67 (23-300) U/L Urine RBC (0-5/HPF) Urine WBC (0-5/HPF) Ur Squamous Epith Cells (0-5/HPF) Urine Bacteria (None) Ur Culture Indicated? 07/30/23 07/30/23 Range/Units 10:18 12:00 WBC (4.5-11.0) X10^3/uL RBC (4.5-5.9) X10^6/uL Hgb (13.5-17.5) g/dL Hct (41-53) % MCV (80-100) fL MCH (26-34) PG MCHC (30-36) % RDW (11.6-14.8) % Plt Count (150-400) X10^3/uL Neut % (Auto) (50-75) % Lymph % (Auto) (25-40) % [place] % (Auto) (3-14) % Eos % (Auto) (2-4) % Baso % (Auto) (0-2) % Neut # (Auto) (9759-0018) /uL Lymph # (Auto) (2321-8058) /uL [place] # (Auto) (0-900) /uL Eos # (Auto) (0-450) /uL Baso # (Auto) (0-100) /uL PT (10.1-12.7) SECONDS INR (0.9-1.3) APTT (26-36) SECONDS Sodium (137-145) mmol/L Potassium (3.4-5.1) mmol/L Chloride (98-107) mmol/L Carbon Dioxide (22-32) mmol/L BUN (9-20) mg/dL Creatinine (0.66-1.25) mg/dL Estimated GFR (>60) mL/min BUN/Creatinine Ratio (6-22) Glucose (80-110) mg/dL Calcium (8.4-10.2) mg/dL Magnesium (1.6-2.3) mg/dL Total Bilirubin (0.2-1.3) mg/dL AST (17-59) IU/L ALT (<50) IU/L Alkaline Phosphatase (38-126) U/L Total Creatine Kinase (55-170) U/L Troponin I < 0.012 (0.01-0.034) ng/mL NT-Pro-B Natriuret Pep 37 (<450) pg/mL Total Protein (6.3-8.2) g/dL Albumin (3.5-5.0) g/dL Globulin (1.7-4.1) g/dL Albumin/Globulin Ratio (1.0-2.8) Lipase (23-300) U/L Urine RBC 0-1/hpf (0-5/HPF) Urine WBC 0-1/hpf (0-5/HPF) Ur Squamous Epith Cells None seen (0-5/HPF) Urine Bacteria None seen (None) Ur Culture Indicated? Cult not indicated Urine Dip Bedside Urine Glucose Negative Bedside Urine Bilirubin - Negative Bedside Urine Ketone - Negative Urine Specific [place] 1.015 Bedside Urine Occult Blood - Negative Bedside Urine pH 6.0 Bedside Urine Protein - Negative Bedside Urine Urobilinogen - Negative Bedside Urine Nitrite - Negative Bedside Urine Leukocytes + 70 Esterase Imaging Data Chest x-ray: Radiologist's Impresson: Fuentes Chin??78??M??1945 ? Allergy/Adv: shellfish derived, procaine Close Chest X-Ray (Signed) LynseyJuan Carlos - 07/30/23 Echocardiogram Ultrasound (Signed) Izzy Chapa - 03/28/23 Hip X-Ray (Signed) Asha Madsen - 08/13/22 Telemetry Strips 07/31/[address] (Signed) LynseyAdelfo mcmahonmaryjane - 01/12/19 Abdomen Ultrasound (Signed) LynseyDavid mcmahonreyes - 07/03/18 Abdomen MRI (Signed) Lynsey,Stacey - 07/03/18 Abdomen/Pelvis CT (Signed) Ravinder Ponce - 06/09/18 [place] [address] XRay Report Signed Patient: Fuentes Chin MR#: [id number] : 1945 Acct:[id number] Age/Sex: 78 / M Date of Service: 07/30/23 Loc: ED Accession Number: [id number] ?? Procedure: XR chest 1V Ordering Provider: Nga Davies D.O. PROCEDURE:? XR CHEST 1V ? INDICATIONS:? chest pain ? TECHNIQUE:? One view of the chest was acquired.? ? COMPARISON:? CT, CT CHEST WO CON, 01/12/2019, 8:39. ? FINDINGS:? ? Surgical changes and devices:? None.? ? Lungs and pleura:? Lungs are clear.? No pleural effusions or pneumothorax.? ? Mediastinum:? Mediastinal contours appear normal.? Heart size is normal.? ? Bones and chest wall:? No suspicious bony lesions.? Overlying soft tissues appear unremarkable.? ? ? IMPRESSION:? Portable chest within normal limits for age. ? ? Dictated by: Juan Carlos Menon M.D. on 07/30/2023 at 9:49 ? ? Approved by: Juan Carlos Menon M.D. on 07/30/2023 at 9:49?? ECG Data Attestation: I personally reviewed and interpreted this ECG as follows: Prior ECG tracings: not available for review Interpretation: Sinus rhythm rate of 73 LA 166, QRS of 98 QTC 431. LAFB, no priors for comparison. MDM Narrative Medical decision making narrative: Pleasant 78-year-old male who presents with complaint of palpitations, he states they have been going on for about 5 days he contacted his primary care office who told him to come here. He has had some mild lightheadedness no syncope. No other red flag symptoms. He notes he had similar episode last February had EKG and echo at that time which showed extra beats but no other changes. He is on amlodipine, aspirin, atorvastatin, tamsulosin until the fill daily no medication changes for quite some time. Patient's lab workup shows normal CBC, CMP has a glucose of 118 otherwise normal electrolytes, renal function and LFTs. Negative troponin x2, negative coags with a BNP of 37 and negative chest x-ray. Discussed with patient can continue his home meds did ask him check his blood pressures seems to be worse in the morning and he feels more lightheaded. Patient and I discussed having him follow up with primary care for Holter/ZIO patch although he does have occasional PVCs and maybe feeling these. Discussed return precautions all questions answered. Patient feels comfortable with this plan. Discharge Plan Departure Patient Disposition: Home Clinical Impression: Heart palpitations Instructions: DI for Palpitations Activity Restrictions/Additional Instructions: Please follow-up with Dr. Mcwilliams for recheck. Call for an appointment. You did have some occasional PVCs but no other obvious heart arrhythmias here in the department, discussed with Dr. Mcwilliams about whether or not to have a Holter monitor or ZIO patch. You may continue your other home medications as prescribed. Please take your blood pressure in the mornings to see where you run. Please return for new or worsening symptoms, persistent fast or irregular heartbeat, worsening lightheadedness or passing out, new chest pain, shortness of breath, new swelling in her extremities or other new or concerning changes. Prescriptions: No Action tadalafil 20 mg tablet 20 mg PO DAILY Patient Comments: TAKE ONE TABLET BY MOUTH ONE TIME DAILY aspirin 81 mg tablet,delayed release (DR/EC) 81 mg PO DAILY cholecalciferol (vitamin D3) 25 mcg (1,000 unit) capsule 25 mcg PO DAILY coenzyme [id number] E 100-100 mg-unit capsule 2 cap PO DAILY tamsulosin 0.4 mg capsule 0.4 mg PO DAILY amlodipine 2.5 mg tablet 2.5 mg PO DAILY Qty: 90 3RF atorvastatin 20 mg tablet 20 mg PO DAILY Qty: 90 3RF Referrals: Chuck Mcwilliams MD [Primary Care Provider] - Stand Alone Forms: Patient Portal/API
== END 2023-07-30 13:45 | disposition home or self-care (01) ==
PROVIDERS: Emergency Provider Emergency Medicine; PCP Internal Medicine
DX: R00.2 Palpitations (principal); R07.9 Chest pain, unspecified
CPT/HCPCS: 36415; 71045; 80053; 81003; 81015; 82550; 83690; 83735; 83880; 84484; 85025; 85610; 85730; 93005; 93010; 99284

== ENCOUNTER → 2023-08-07 13:31 | Outpatient (CLI) | payer MEDICARE, BC, SELFPAY | PROVIDERS: PCP Internal Medicine; Referring Provider Internal Medicine; Visit Provider Internal Medicine | DX: R00.2 Palpitations (principal) | CPT/HCPCS: 93246 ==

== ENCOUNTER → 2023-12-05 09:24 | Outpatient (CLI) | payer MEDICARE, BC, SELFPAY ==
[2023-12-05 11:36] LABS: Prostate Specific Antigen 3.84 ng/mL (0.10-4.00)
== END ==
PROVIDERS: PCP Internal Medicine; Referring Provider Student in an Organized Health Care Education/Training Program; Visit Provider Student in an Organized Health Care Education/Training Program
DX: C61 Malignant neoplasm of prostate (principal)
CPT/HCPCS: 36415; 84153

== ENCOUNTER → 2024-04-16 15:01 | Outpatient (CLI) | payer MEDICARE, BC, SELFPAY ==
[2024-04-16 17:24] LABS: Aspartate Aminotransferase 26 IU/L (17-59); BUN Creatinine Ratio 21.7 (6-22); Blood Urea Nitrogen 20 mg/dL (9-20); Calcium 8.8 mg/dL (8.4-10.2); Carbon Dioxide 24 mmol/L (22-32); Chloride 108 mmol/L (98-107); Cholesterol 156 mg/dL (140-199); Estimated Glomerular Filt Rate > 60 mL/min (>60); Glucose 104 mg/dL (80-110); HDL Cholesterol 52 mg/dL (40-60); HEMOLYSIS < 15 (0-50); LDL Cholesterol Calculated 76 mg/dL (<100); Potassium 4.3 mmol/L (3.4-5.1); Sodium 138 mmol/L (137-145); Triglycerides 138 mg/dL (35-150)
== END ==
PROVIDERS: PCP Internal Medicine; Referring Provider Internal Medicine; Visit Provider Internal Medicine
DX: E78.2 Mixed hyperlipidemia (principal); I10 Essential (primary) hypertension
CPT/HCPCS: 80048; 80061; 84450

== ENCOUNTER → 2024-05-29 12:54 | Outpatient (CLI) | payer MEDICARE, BC, SELFPAY ==
[2024-05-29 15:51] LABS: Prostate Specific Antigen 3.75 ng/mL (0.10-4.00)
== END ==
LOC: LAB 12:55
PROVIDERS: PCP Internal Medicine; Referring Provider Student in an Organized Health Care Education/Training Program; Visit Provider Student in an Organized Health Care Education/Training Program
DX: C61 Malignant neoplasm of prostate (principal)
CPT/HCPCS: 36415; 84153

== ENCOUNTER → 2024-11-26 10:53 | Outpatient (CLI) | payer MEDICARE, BC, SELFPAY ==
[2024-11-26 13:23] LABS: Prostate Specific Antigen 3.44 ng/mL (0.10-4.00)
== END ==
PROVIDERS: PCP Internal Medicine; Referring Provider Student in an Organized Health Care Education/Training Program; Visit Provider Student in an Organized Health Care Education/Training Program
DX: C61 Malignant neoplasm of prostate (principal)
CPT/HCPCS: 36415; 84153

== ENCOUNTER → 2024-12-15 16:12 | Outpatient (CLI) | payer MEDICARE, BC, SELFPAY ==
[2024-12-15 20:26] LABS: Influenza A - CEPHEID Flu A POSITIVE (NEGATIVE); Influenza B - CEPHEID Flu B NEGATIVE (NEGATIVE); Respiratory Syncytial Virus Negative (Negative)
[2024-12-15 20:27] LABS: COVID-19 CEPHEID 4-PLEX PCR Negative (Negative)
== END ==
PROVIDERS: PCP Internal Medicine; Visit Provider Physician Assistant
DX: R05.1 Acute cough (principal)
CPT/HCPCS: 0241U

== ENCOUNTER → 2024-12-15 16:34 | Outpatient (CLI) | payer MEDICARE, BC, SELFPAY ==
--- NOTE | 2024-12-15 16:35 | DI.RAD.S_ITS ---
PROCEDURE: XR CHEST 2V INDICATIONS: cough x 1 week TECHNIQUE: 2 views of the chest were acquired. COMPARISON: [facility], CR, XR CHEST 1V, 07/30/2023, 9:25. FINDINGS: Surgical changes and devices: None. Lungs and pleura: Lungs are clear. No pleural effusions or pneumothorax. Mediastinum: Mediastinal contours are normal. Heart size is normal. Bones and chest wall: No suspicious bony abnormalities. Soft tissues appear unremarkable. IMPRESSION: No acute cardiopulmonary abnormality is seen. Dictated by: Mayito Stinson M.D. on 12/16/2024 at 16:25 Approved by: Mayito Stinson M.D. on 12/16/2024 at 16:26
== END ==
PROVIDERS: PCP Internal Medicine; Referring Provider Physician Assistant; Visit Provider Physician Assistant
DX: J06.9 Acute upper respiratory infection, unspecified (principal); R05.1 Acute cough
CPT/HCPCS: 0241U; 71046

== ENCOUNTER → 2025-04-21 08:51 | Outpatient (CLI) | payer MEDICARE, BC, SELFPAY ==
[2025-04-21 10:37] LABS: Aspartate Aminotransferase 24 IU/L (17-59); BUN Creatinine Ratio 22.4 (6-22); Blood Urea Nitrogen 22 mg/dL (9-20); Calcium 9.4 mg/dL (8.4-10.2); Carbon Dioxide 26 mmol/L (22-32); Chloride 106 mmol/L (98-107); Cholesterol 166 mg/dL (140-199); Estimated Glomerular Filt Rate > 60 mL/min (>60); Glucose 86 mg/dL (70-99); HDL Cholesterol 70 mg/dL (40-60); HEMOLYSIS < 15 (0-50); LDL Cholesterol Calculated 81 mg/dL (<100); Potassium 4.6 mmol/L (3.4-5.1); Sodium 139 mmol/L (137-145); Triglycerides 73 mg/dL (35-150)
[2025-04-21 11:07] LABS: Prostate Specific Antigen 3.63 ng/mL (0.10-4.00)
== END ==
PROVIDERS: PCP Internal Medicine; Referring Provider Internal Medicine; Visit Provider Internal Medicine
DX: I10 Essential (primary) hypertension (principal); C61 Malignant neoplasm of prostate; E78.2 Mixed hyperlipidemia
CPT/HCPCS: 36415; 80048; 80061; 84153; 84450

== ENCOUNTER → 2025-06-02 09:30 | Outpatient (CLI) | payer MEDICARE, BC, SELFPAY ==
[2025-06-02 11:01] LABS: Prostate Specific Antigen 4.06 ng/mL (0.10-4.00)
== END ==
PROVIDERS: PCP Internal Medicine; Referring Provider Student in an Organized Health Care Education/Training Program; Visit Provider Student in an Organized Health Care Education/Training Program
DX: C61 Malignant neoplasm of prostate (principal)
CPT/HCPCS: 36415; 84153